=== PATIENT | female | born 1985 | race Caucasian/White ===

== ENCOUNTER 2019-08-11 08:30 | Inpatient (IN) | payer OTHER ==
[2019-08-11] MEDS ORDERED: ELECTROLYTE-148 SOLN 500 ML IV ONE (09:29)
[2019-08-11] MEDS ORDERED: PROMETHAZINE HCL 25 MG/1 ML VIAL IVPUSH ONE (09:29)
[2019-08-11] MEDS ORDERED: ELECTROLYTE-148 SOLN 1,000 ML IV SCH ×2 (09:30→19:45)
[2019-08-11] MEDS ORDERED: DINOPROSTONE 10 MG VAGINAL SUPPOSITORY VG ONE (09:34)
[2019-08-11 10:14] VITALS: BMI 33.6
[2019-08-11] MEDS: ELECTROLYTE-148 SOLN 1,000 ML IV SCH ×2 (12:30→17:00)
[2019-08-11 13:39] LABS: BASO % 0.7 % (0-2.0); EOS % 0.6 % (0-4.5); HEMATOCRIT 35.7 % (32.4-45.2); HEMOGLOBIN 11.3 GM/dL (10.7-15.3); LYMPH % 20.3 % (8-40); MCH 25.1 pg (25.7-33.7); MCHC 31.5 g/dl (32.0-36.0); MEAN CELL VOLUME 79.8 fl (80-96); MONO % 7.6 % (3.8-10.2); NEUT % 70.8 % (42.8-82.8); PLATELET COUNT 332 K/MM3 (134-434); RBC 4.47 M/mm3 (3.60-5.2); WHITE BLOOD COUNT 9.1 K/mm3 (4.0-10.0)
[2019-08-11 13:49] LABS: INR 0.85 (0.83-1.09)
[2019-08-11 13:52] LABS: ACTIVATED PTT 24.7 SECONDS (25.2-36.5)
[2019-08-11 14:03] LABS: BLOOD UREA NITROGEN 4.3 mg/dL (7-18); CALCIUM 8.9 mg/dL (8.5-10.1); CREATININE 0.5 mg/dL (0.55-1.3); POTASSIUM 4.2 mmol/L (3.5-5.1)
--- NOTE | 2019-08-11 14:46 | HP ---
Past Medical History - Primary Care Physician PCP:: Alexa Osborne - Admission Chief Complaint: Induction at 41 weeks History of Present Illness: 34 yo EDC EDC EGA 41 week admitted for induction of labor no rom no abd pain History Source: Patient Limitations to Obtaining History: No Limitations - Past Medical History ...: 1 ...Para: 0 ...Term: 0 ...: 0 ...Spon : 0 ...Induced : 0 ...Living Children: 0 ...Multiple Gestation: 0 ...LMP: 10/24/18 ... Weeks Gestation by Dates: 41.1 ...EDC by Dates: 08/03/19 - Past Surgical History Past Surgical History: Yes: None Hx Myomectomy: No Hx Transabdominal Cerclage: No - Smoking History Smoking history: Never smoked Have you smoked in the past 12 months: No - Alcohol/Substance Use Hx Alcohol Use: No History of Substance Use: reports: None - Social History Usual Living Arrangement: Yes: With Spouse History of Recent Travel: No Home Medications - Allergies Allergies/Adverse Reactions: Allergies Allergy/AdvReac Type Severity Reaction Status Date / Time Penicillins Allergy Severe Difficulty Verified 08/11/19 10:20 Breathing Sulfa (Sulfonamide Allergy Intermediate Hives Verified 08/11/19 10:20 Antibiotics) shellfish derived Allergy Mild Vomiting Verified 08/11/19 10:20 barium sulfate Allergy Hives Verified 10/02/12 20:00 - Home Medications Home Medications: Ambulatory Orders Ferrous Sulfate [Feosol] 325 mg PO DAILY 08/11/19 Lactulose [Kristalose] 10 gm PO DAILY 08/11/19 Review of Systems - Review of Systems Constitutional: reports: No Symptoms Eyes: reports: No Symptoms HENT: reports: No Symptoms Neck: reports: No Symptoms Cardiovascular: reports: No Symptoms Respiratory: reports: No Symptoms Gastrointestinal: reports: No Symptoms Genitourinary: reports: No Symptoms Breasts: reports: No Symptoms Reported Musculoskeletal: reports: No Symptoms Integumentary: reports: No Symptoms Neurological: reports: No Symptoms Endocrine: reports: No Symptoms Hematology/Lymphatic: reports: No Symptoms Psychiatric: reports: No Symptoms Physical Exam - Maternity Vital Signs: Vital Signs Temperature 98.2 F 08/11/19 14:00 Pulse Rate 120 H 08/11/19 14:00 Respiratory Rate 18 08/11/19 14:00 Blood Pressure 118/77 08/11/19 14:00 O2 Sat by Pulse Oximetry (%) Constitutional: Yes: Well Nourished, No Distress - Abdominal Exam/OB Number of Fetuses: Single Presentation: Vertex Heart Rate Location: [facility] Category: I - Vaginal Exam/OB Dilatation (cm): FT Amniotic Membrane Status: Intact Presentation: Vertex/Position Station: -2 - Physical Exam Musculoskeletal: Yes: WNL Extremities: Yes: WNL Edema: No - Labs Lab Results: CBC, BMP 08/11/19 12:57 08/11/19 12:57 Problem List - Problems (1) 41 weeks gestation of Code(s): Z3A.41 - 41 WEEKS GESTATION OF (2) Post-dates Code(s): O48.0 - POST-TERM Assessment/Plan iup at 41 weeks cervidil induction Postdates Cat 1 Plan cervidiil
[2019-08-11] MEDS ORDERED: ACETAMINOPHEN INJECTION 100 ML IVPB ONE (15:48)
[2019-08-11] MEDS ORDERED: ACETAMINOPHEN 1000 MG/100 ML VIAL (NON FORMULARY) IVPB PRN (16:47)
--- NOTE | 2019-08-11 17:04 | PN ---
Ante-Partal Exam - Subjective Subjective: Pt with elevated temp 100.6 Vital Signs: Vital Signs Temperature 99.0 F 08/11/19 16:00 Pulse Rate 115 H 08/11/19 16:00 Respiratory Rate 20 08/11/19 16:00 Blood Pressure 122/80 08/11/19 16:00 O2 Sat by Pulse Oximetry (%) Bleeding: No Headache: No Visual changes: No Right upper quadrant pain: No - Contractions Contractions: Tachysystole (Greater than 5 contractions in a 10 minute period) Regularity: Regular Intensity: Moderate Monitor Mode: External - Exam during Labor Heart Rate: 170 Variability: Minimal Category: II Monitor Decelerations: None Amniotic Membrane Status: Intact - Assessment/Plan Assessment/Plan: low grade temp Cat 2 Tentanic contraction Plan DC cervidil IVF IV Tylenol
[2019-08-11] MEDS ORDERED: CLINDAMYCIN 900 MG PREMIX IVPB 900 MG/50 ML BAG IVPB ONE (18:00)
--- NOTE | 2019-08-11 18:36 | PN ---
Ante-Partal Exam - Subjective Subjective: pt with tachycardia Vital Signs: Vital Signs Temperature 98.5 F 08/11/19 17:00 Pulse Rate 120 H 08/11/19 17:00 Respiratory Rate 18 08/11/19 17:00 Blood Pressure 138/79 08/11/19 17:00 O2 Sat by Pulse Oximetry (%) - Exam during Labor Heart Rate: 170 Variability: Moderate Category: II Monitor Decelerations: None Exam: Vaginal Amniotic Membrane Status: Intact Station: -1 - Intrapartum Hemorrhage Risk Risk Score: 0 Risk Level: Low Risk - Assessment/Plan Assessment/Plan: tachycardia Cat 2 Plan IV antibiotics IVF
--- NOTE | 2019-08-11 18:43 | PN ---
Ante-Partal Exam - Subjective Subjective: heart rate in 180s pt admits to possible leaking a few days ago no bleeding Vital Signs: Vital Signs Temperature 98.8 F 08/11/19 18:00 Pulse Rate 111 H 08/11/19 18:00 Respiratory Rate 18 08/11/19 18:00 Blood Pressure 136/83 08/11/19 18:00 O2 Sat by Pulse Oximetry (%) Bleeding: No Headache: No Visual changes: No Right upper quadrant pain: No - Contractions Contractions: Tachysystole (Greater than 5 contractions in a 10 minute period) Regularity: Regular Monitor Mode: External - Exam during Labor Heart Rate: 180 Heart Rate Location: [facility] Category: I Exam: Vaginal Dilatation (cm): 2 Effacement (%): 70 Amniotic Membrane Status: Leaking (? leaking) Presentation: Vertex Station: -2 - Intrapartum Hemorrhage Risk Risk Score: 0 Risk Level: Low Risk - Assessment/Plan Assessment/Plan: IUP at 41 week possible chorioamniotis FH180 pt offered CS - pt and refused right now Plan COntinue observation
[2019-08-11] MEDS ORDERED: ONDANSETRON 4 MG/2 ML VIAL IVPUSH PRN (19:24)
[2019-08-11] MEDS ORDERED: morphine SULFATE/PF 0.5 MG/ML (2cc Syringe - QUVA) ONE (19:30)
[2019-08-11] MEDS ORDERED: CITRIC ACID/SODIUM CITRATE 30 ML UNIT-DOSE CUP PO ONE (19:30)
[2019-08-11] MEDS ORDERED: METHYLERGONOVINE MALEATE 0.2 MG/1 ML AMP IM PRN (19:44)
[2019-08-11] MEDS ORDERED: BENZOCAINE 28 GM HEMORRHOIDAL OINTMENT RC PRN (19:44)
[2019-08-11] MEDS ORDERED: diphenhydrAMINE HCL 25 MG CAPSULE (FP) PO PRN (19:44)
[2019-08-11] MEDS ORDERED: WITCH HAZEL 50% (TUCKS) 40 PAD/JAR PAD TP PRN (19:44)
[2019-08-11] MEDS ORDERED: BENZOCAINE 20% 57 GM BOTTLE TP PRN (19:44)
--- NOTE | 2019-08-11 19:44 | PN ---
Ante-Partal Exam - Subjective Subjective: pt still with tachycardia with occ spont decels case disucced with and pt advised CS pt agrees Vital Signs: Vital Signs Temperature 98.8 F 08/11/19 18:00 Pulse Rate 111 H 08/11/19 18:00 Respiratory Rate 18 08/11/19 18:00 Blood Pressure 136/83 08/11/19 18:00 O2 Sat by Pulse Oximetry (%) Bleeding: No Headache: No Visual changes: No Right upper quadrant pain: No - Contractions Contractions: Yes Regularity: Irregular Monitor Mode: External - Exam during Labor Variability: Minimal, Moderate Category: II Monitor Accelerations: Absent Monitor Decelerations: Variable Exam: Vaginal Dilatation (cm): 2 Amniotic Membrane Status: Leaking Presentation: Vertex Station: -2 - Intrapartum Hemorrhage Risk Medium Risk Factors: Chorioamniomitis Risk Score: 1 Risk Level: Medium Risk - Assessment/Plan Assessment/Plan: Nonreassuring Cat 2 tachycardia 41 week Plan CS notify peds and anesthesia
[2019-08-11] MEDS ORDERED: OXYTOCIN 20 UNITS in 0.9% NS 20 UNIT/1,000 ML INFUS.BAG IV SCH (20:00)
[2019-08-11] MEDS ORDERED: KETOROLAC TROMETHAMINE 30 MG/1 ML VIAL ONE (20:04)
[2019-08-11] MEDS ORDERED: DEXAMETHASONE SOD PHOSPHATE 4 MG/1 ML VIAL ONE (20:04)
[2019-08-11] MEDS ORDERED: OXYTOCIN 10 UNITS/ML VIAL ONE (20:04)
[2019-08-11] MEDS ORDERED: PHENYLEPHRINE HCL 10 MG/1 ML SINGLE DOSE VIAL ONE (20:08)
[2019-08-11] MEDS ORDERED: GENTAMICIN SO4 80 MG/2 ML VIAL ONE (20:17)
--- NOTE | 2019-08-11 20:33 | PN ---
Progress Note (short form) - Note Progress Note: Attended C/S for this 34yrs old mother with PNL- Nl, GBS- neg C/S for NRFHT Mom had 1 spike of low grade Temp of 100.4 none after than Had received 1 dose of Tylenol, Got 1 dose of Clinda @ around 6Pm delivered, clear fluid, cried soon after suctioned/dried cord 3V 9/9 clibnically stable - pink well perfused HEENT- normocephalic, Good air entry No heart murmur, No organo Good tone and activity. No organomegaly FROM., Nl Hip exam RNBC Watch for resp distrtess CBC @ 6hrs Blood culture now.
--- NOTE | 2019-08-11 21:10 | OP ---
Operative Note - Note: Operative Date: 08/11/19 Pre-Operative Diagnosis: nonreassuring tracing. iup at 41 weeks. tacycardia Operation: Primary Low transverse Section Findings: live male nuchal cord x 1 Post-Operative Diagnosis: Same as Pre-op Surgeon: Alexa Osborne Saddle And Side Wire Stitcher: Ulisses Palacios Anesthesia: Spinal Estimated Blood Loss (mls): 500 Operative Report Dictated: Yes
--- NOTE | 2019-08-11 22:02 | OP ---
DATE OF OPERATION: 08/11/2019 PREOPERATIVE DIAGNOSIS: Nonreassuring tracing, tachycardia, and intrauterine at 41 weeks. OPERATION: Primary low transverse section. POSTOPERATIVE DIAGNOSES: 1. Nonreassuring tracing, tachycardia, and intrauterine at 41 weeks. 2. Live male infant, nuchal cord x1, delivered in left occiput transverse position. SURGEON: Alexa Osborne MD DRUG SAFETY ASSISTANT: SON Champagne ANESTHESIA: Spinal. ANESTHESIOLOGIST: Brian Tsai MD DESCRIPTION OF PROCEDURE: Patient was taken to the operating room, placed in supine position, prepped and draped in usual sterile fashion after spinal anesthesia had been given. A timeout was performed in accordance with hospital regulation. Pfannenstiel skin incision was made with a scalpel. Cautery was then used to go through the layers of the abdominal wall to the level of the fascia. Fascia was cut in the midline, and cautery was then used to open the fascia in smiling fashion. Andie was then used to bluntly and sharply dissect the rectus muscle off the fascia. Muscle was split in the midline. Peritoneal cavity was then entered. Bladder retractor was then placed. Scalpel was then used to make a low transverse uterine incision. Incision was carried up using the bandage scissors. A live male infant was delivered in OT position, nose and mouth suction performed. Shoulders were delivered without difficulty. Cord was clamped and cut, cord blood obtained, cord pH obtained. Placenta was manually extracted from the patient. Infant was handed to entry driver operator. Uterus was exteriorized and cleaned with clean lap pads and closed using 0 Biosyn suture, first layer continuous interlocking, second layer imbricating the first layer. Hemostasis was achieved, uterus interiorized. Abdominal cavity cleaned with clean lap pads. Peritoneum closed using 0 Biosyn suture. Fascia was then closed using 0 Vicryl suture in 2 parts. Subcutaneous was closed using 0 Biosyn suture in interrupted sutures, and skin was then closed using 3-0 Vicryl subcuticular fashion. Wound was washed and dressed. Patient tolerated the procedure well, was taken to recovery room in stable condition. EBL 500 cc Shahla HILL/[id number] [facility]
[2019-08-11 22:25] LABS: CORD HCO3 21.9 mmHg (20-29); CORD PCO2 52.9 mmHg (30-78); CORD pH 7.235 (7.14-7.44)
[2019-08-11 22:31] LABS: CORD BASE EXCESS -4.2 mmol/L (0-2); CORD HCO3 22.2 mmHg (20-29); CORD PCO2 46.1 mmHg (30-78); CORD pH 7.301 (7.14-7.44)
[2019-08-11] MEDS: IBUPROFEN 800 MG/8 ML IJ IVPB PRN (23:03)
[2019-08-11] MEDS: BUTORPHANOL TARTRATE 1 MG/ML VIAL IVPB SCH (23:38)
[2019-08-12] MEDS: CLINDAMYCIN 600MG PREMIX IVPB 600 MG/50 ML BAG IVPB SCH ×5 (00:48→23:29)
--- NOTE | 2019-08-12 07:02 | PN ---
Progress Note (SOAP) - Subjective Chief Complaint: Pt doing well - Current Medications Current Medications: Active Medications Acetaminophen (Ofirmev Injection -) 1,000 mg IVPB Q6H PRN PRN Reason: FEVER Stop: 08/12/19 16:50 Last Admin: 08/11/19 16:00 Dose: 1,000 mg Documented by: Acetaminophen (Tylenol -) 650 mg PO Q4H PRN PRN Reason: FEVER Benzocaine (Americaine 20% [place] -) 1 spray TP PRN PRN PRN Reason: Pain - Topical Benzocaine (Americaine Ointment -) 1 applic RC PRN PRN PRN Reason: Pain - Topical Bisacodyl (Dulcolax Suppository -) 10 mg WV PRN PRN PRN Reason: CONSTIPATION Diphenhydramine HCl (Benadryl -) 25 mg PO Q6H PRN PRN Reason: FOR ITCHING Hydromorphone HCl (Dilaudid -) 4 mg PO Q4H PRN PRN Reason: PAIN LEVEL 7 - 10 Stop: 08/13/19 19:43 Parenteral Electrolytes (Plasma-Lyte 148 -) 1,000 mls @ 125 mls/hr IV ASDIR VERONICA Last Admin: 08/11/19 17:00 Dose: 125 mls/hr Documented by: Clindamycin Phosphate (Cleocin 600 Mg Premix Ivpb -) 600 mg in 50 mls @ 100 mls/hr IVPB Q6H VERONICA Stop: 08/13/19 00:00 Last Admin: 08/12/19 05:37 Dose: 100 mls/hr Documented by: Oxytocin/Sodium Chloride (Normal Saline+20 Units Oxytocin -) 20 unit in 1,000 mls @ 125 mls/hr IV ASDIR VERONICA Ibuprofen (Motrin -) 600 mg PO Q4H PRN PRN Reason: PAIN LEVEL 1 - 3 Ibuprofen (Caldolor Injection -) 800 mg IVPB Q6H PRN PRN Reason: Fever - If PO not effective. Last Admin: 08/11/19 23:03 Dose: 800 mg Documented by: Methylergonovine Maleate (Methergine Injection -) 0.2 mg IM Q4H PRN PRN Reason: EXCESSIVE BLEEDING Ondansetron HCl (Zofran Injection) 4 mg IVPUSH Q4H PRN PRN Reason: NAUSEA Oxycodone HCl (Roxicodone -) 5 mg PO Q4H PRN PRN Reason: PAIN LEVEL 1 - 3 Oxycodone HCl (Roxicodone -) 10 mg PO Q4H PRN PRN Reason: PAIN LEVEL 4 - 6 Senna/Docusate Sodium (Pericolace -) 2 tablet PO HS PRN PRN Reason: CONSTIPATION Simethicone (Mylicon -) 80 mg PO Q4H PRN PRN Reason: GAS Witch Maria R/Glycerin (Tucks Pads -) 1 pad TP PRN PRN PRN Reason: Pain - Topical - Objective Vital Signs: Vital Signs Temperature 98.0 F 08/12/19 05:56 Pulse Rate 96 H 08/12/19 05:56 Respiratory Rate 08/12/19 06:00 Blood Pressure 97/60 08/12/19 05:56 O2 Sat by Pulse Oximetry (%) 100 08/11/19 21:55 Constitutional: Yes: Well Nourished HENT: Yes: WNL Gastrointestinal: Yes: Soft, Abdomen, Obese ....Post : Yes: Uterus firm, Uterus non-tender Breast(s): Yes: WNL Musculoskeletal: Yes: WNL Extremities: Yes: WNL Wound/Incision: Yes: Clean/Dry, Well Approximated, Steri Strips, Open to air, Dressing Removed Neurological: Yes: WNL, Alert, Oriented Psychiatric: Yes: WNL, Alert, Oriented Labs Lab Results: CBCD WBC 9.1 K/mm3 (4.0-10.0) 08/11/19 12:57 RBC 4.47 M/mm3 (3.60-5.2) 08/11/19 12:57 Hgb 11.3 GM/dL (10.7-15.3) 08/11/19 12:57 Hct 35.7 % (32.4-45.2) 08/11/19 12:57 MCV 79.8 fl (80-96) L 08/11/19 12:57 MCHC 31.5 g/dl (32.0-36.0) L 08/11/19 12:57 RDW 18.0 % (11.6-15.6) H 08/11/19 12:57 Plt Count 332 K/MM3 (134-434) D 08/11/19 12:57 MPV 9.0 fl (7.5-11.1) D 08/11/19 12:57 CMP Sodium 139 mmol/L (136-145) 08/11/19 12:57 Potassium 4.2 mmol/L (3.5-5.1) 08/11/19 12:57 Chloride 108 mmol/L (98-107) H 08/11/19 12:57 Carbon Dioxide 22 mmol/L (21-32) 08/11/19 12:57 Anion Gap 9 MMOL/L (8-16) 08/11/19 12:57 BUN 4.3 mg/dL (7-18) L 08/11/19 12:57 Creatinine 0.5 mg/dL (0.55-1.3) L 08/11/19 12:57 Random Glucose 75 mg/dL (74-106) 08/11/19 12:57 Calcium 8.9 mg/dL (8.5-10.1) 08/11/19 12:57 Problem List - Problems (1) 41 weeks gestation of Problems reviewed: Yes Code(s): Z3A.41 - 41 WEEKS GESTATION OF (2) Post-dates Problems reviewed: Yes Code(s): O48.0 - POST-TERM Qualifiers: Post-term type: 40-42 weeks gestation Qualified Code(s): O48.0 - Post-term (3) delivery delivered Code(s): O82 - ENCOUNTER FOR DELIVERY WITHOUT INDICATION (4) Status post primary low transverse section Problems reviewed: Yes Code(s): Z98.891 - HISTORY OF UTERINE SCAR FROM PREVIOUS SURGERY Assessment/Plan SP CS POD1 stable Plan OOB continue present management
[2019-08-12 07:28] LABS: HEMATOCRIT 27.6 % (32.4-45.2); HEMOGLOBIN 8.7 GM/dL (10.7-15.3); MCH 25.1 pg (25.7-33.7); MCHC 31.5 g/dl (32.0-36.0); MEAN CELL VOLUME 79.8 fl (80-96); MEAN PLT VOLUME 8.9 fl (7.5-11.1); PLATELET COUNT 269 K/MM3 (134-434); RBC 3.46 M/mm3 (3.60-5.2); RDW 17.6 % (11.6-15.6); WHITE BLOOD COUNT 14.4 K/mm3 (4.0-10.0)
[2019-08-12] MEDS: IBUPROFEN 800 MG/8 ML IJ IVPB PRN (08:39)
[2019-08-12] MEDS: SIMETHICONE 80 MG TAB.CHEW (FP) PO PRN ×3 (08:40→21:26)
--- NOTE | 2019-08-12 14:11 | PN ---
Progress Note (short form) - Note Progress Note: Pt seen. Feeling well. VSS. No N/V. c/o itching. VALENZUELA well. Recommend benadryl for itching. Continue current care.
[2019-08-12] MEDS: IBUPROFEN 600 MG TABLET (FP) PO PRN ×2 (18:32→21:27)
[2019-08-12] MEDS: ACETAMINOPHEN 325 MG TABLET (FP) PO PRN ×2 (18:33→21:27)
[2019-08-12] MEDS ORDERED: BISACODYL 10 MG SUPP.RECT PR PRN (19:44)
[2019-08-12] MEDS ORDERED: HYDROmorphone HCL 2 MG TABLET PO PRN (19:44)
[2019-08-12] MEDS ORDERED: oxyCODONE HCL 5 MG TABLET PO PRN ×2 (19:44)
[2019-08-12] MEDS: ELECTROLYTE-148 SOLN 1,000 ML IV SCH (19:57)
[2019-08-12] MEDS: BUTORPHANOL TARTRATE 1 MG/ML VIAL IVPB SCH (19:58)
--- NOTE | 2019-08-13 07:00 | PN ---
Post Progress Note - Subjective Subjective: 34 yo Para 1 status post primary , seen and evaluated. Doing well. Post Day: 2 Type of Delivery: Primary C/S Vital Signs: Vital Signs Temperature 97.8 F 08/12/19 22:00 Pulse Rate 98 H 08/12/19 22:00 Respiratory Rate 18 08/12/19 22:00 Blood Pressure 121/74 08/12/19 22:00 O2 Sat by Pulse Oximetry (%) 100 08/11/19 21:55 Breast Exam: Yes: Soft Uterus: Yes: Fundus Firm Incision: Yes: Dressing dry and intact Abdomen/GI: Yes: Abdomen soft, Tolerating PO Lochia: Yes: Rubra Lochia, amount: Small Extremities: Yes: Calves non-tender Activity: Ambulating - Labs Labs: CBC WBC 14.4 K/mm3 (4.0-10.0) H 08/12/19 06:39 RBC 3.46 M/mm3 (3.60-5.2) L 08/12/19 06:39 Hgb 8.7 GM/dL (10.7-15.3) L 08/12/19 06:39 Hct 27.6 % (32.4-45.2) L D 08/12/19 06:39 MCV 79.8 fl (80-96) L 08/12/19 06:39 MCH 25.1 pg (25.7-33.7) L 08/12/19 06:39 MCHC 31.5 g/dl (32.0-36.0) L 08/12/19 06:39 RDW 17.6 % (11.6-15.6) H 08/12/19 06:39 Plt Count 269 K/MM3 (134-434) 08/12/19 06:39 MPV 8.9 fl (7.5-11.1) 08/12/19 06:39 Absolute Neuts (auto) 6.5 K/mm3 (1.5-8.0) 08/11/19 12:57 Neutrophils % 70.8 % (42.8-82.8) 08/11/19 12:57 Lymphocytes % 20.3 % (8-40) D 08/11/19 12:57 Monocytes % 7.6 % (3.8-10.2) 08/11/19 12:57 Eosinophils % 0.6 % (0-4.5) 08/11/19 12:57 Basophils % 0.7 % (0-2.0) 08/11/19 12:57 Nucleated RBC % 0 % (0-0) 08/11/19 12:57 Assessment/Plan Status post primary Ambulation Analgesia as needed Continue routine post op care
--- NOTE | 2019-08-13 14:36 | DS ---
Physical Exam-TICKET ATTENDANT Vital Signs: Vital Signs Temperature 98.3 F 08/13/19 10:00 Pulse Rate 96 H 08/13/19 10:00 Respiratory Rate 18 08/13/19 10:00 Blood Pressure 120/82 08/13/19 10:00 O2 Sat by Pulse Oximetry (%) 100 08/11/19 21:55 Constitutional: Yes: Well Nourished, No Distress ....Post : Yes: Uterus firm, Uterus non-tender Breast(s): Yes: WNL Musculoskeletal: Yes: WNL Extremities: Yes: WNL Edema: Yes Wound/Incision: Yes: Steri Strips, Open to air Psychiatric: Yes: WNL, Alert, Oriented Labs: CBC, BMP 08/12/19 06:39 08/11/19 12:57 Delivery - Delivery Section: Primary, Low Flap Transverse Type of Anesthesia: Spinal Episiotomy/Laceration: None EBL (cc): 500 Delivery, Single - Stages of Labor Date 1st Stage Initiatied: 08/11/19 Time 1st Stage Initiated: 13:00 Date of Delivery: 08/11/19 Time of Delivery: 20:16 Time Placenta Delivered: 20:17 - Condition of Infant Package Wrapper/Hide Handler Present: Yes Name: Jim Isaac Infant Gender: Male Weight: 9 lb 1 oz Total Hours ROM (Hrs/Mins): 4 mins. - 1 Minute Total Score: 9 5 Minutes Total Score: 9 - [place] Feeding Plan Initial Plan: Exclusive throughout hospitalization Discharge Summary Problems reviewed: Yes Reason For Visit: ADMIT FOR INDUCTION Current Active Problems 41 weeks gestation of (Acute) delivery delivered (Acute) Post-dates (Acute) Status post primary low transverse section (Acute) Procedures: Principal: Low transverse section Hospital Course: Unremarkable Condition: Good - Instructions Diet, Activity, Other Instructions: Physical activity Resume your normal everyday activity as tolerated no heavy lifting or exercise until seen by your surgeon. You may walk unlimited elia of and climb stairs. You may resume driving the car when you feel safe and comfortable behind the wheel. No sexual activity as instructed. Wound care If you have a bandage, leave it on, and keep dry for 48-72 hours. After that time discard the outer bandage. If they are tapes on the skin under the out of bandage leave them in place. They will peel off in the next 7 to 10 days. Do Not Peel them off. You may shower the day after surgery. If there are tapes present on the skin, you may shower over them. Diet There are no dietary restrictions. Eat healthy, high-fiber foods. Drink 6 to 8 glasses of liquid each day. This will assist in keeping your bowels are regular. Pain management You may take Tylenol or acetaminophen or Ibuprofen (for example, Motrin, Advil etc.) from my pain prescription medication is ordered should be taken as prescribed for moderate to severe pain. Call MD for any of the following: Severe pain not relieved by medication Fever of 101 or higher Excessive bleeding or drainage on dressing Inability to urinate Referrals: Alexa Osborne MD [Staff Physician] - Disposition: HOME - Home Medications Comprehensive Discharge Medication List: Ambulatory Orders Ferrous Sulfate [Feosol] 325 mg PO DAILY 08/11/19 Lactulose [Kristalose] 10 gm PO DAILY 08/11/19 Oxycodone HCl/Acetaminophen [Percocet 5-325 mg Tablet] 2 tab PO Q4H #20 tablet MDD 6 08/13/19
[2019-08-13] MEDS: ACETAMINOPHEN 325 MG TABLET (FP) PO PRN (14:56)
[2019-08-13] MEDS: SIMETHICONE 80 MG TAB.CHEW (FP) PO PRN (14:57)
[2019-08-13] MEDS: IBUPROFEN 600 MG TABLET (FP) PO PRN (14:57)
--- NOTE | 2019-08-13 15:27 | PN ---
Progress Note (short form) - Note Progress Note: Discussed pt symptoms over the phone - Pt with c/o of headache after epidural does not desire to go home will have anesthesia do consult Problem List - Problems (1) 41 weeks gestation of Code(s): Z3A.41 - 41 WEEKS GESTATION OF (2) Post-dates Code(s): O48.0 - POST-TERM Qualifiers: Post-term type: 40-42 weeks gestation Qualified Code(s): O48.0 - Post-term (3) Epidural anesthesia-induced headache during puerperium Problems reviewed: Yes Code(s): O89.4 - SPINAL AND EPIDUR ANESTHESIA-INDUCED HDACHE DURING THE PUERP
[2019-08-13] MEDS ORDERED: ACETAMINOPHEN/CAFFEINE/BUTALBITAL 1 TAB PO PRN (15:53)
--- NOTE | 2019-08-13 16:02 | PN ---
Progress Note (short form) - Note Progress Note: Saw patient at the request of Dr Osborne for c/o headache post c sec tion.Patient has c section on 08/11/19 and started having frontal headache from last night with pain score of 5-6/10.she is lying in the bed comfortably.Her headache gets better with medication and may be gets worst while standind.IThis not a typical post dural headache so adised her to take medical treatment today and if her headache gets worst we will evaluate tomorrow for possible epidural blood patch.
[2019-08-13] MEDS ORDERED: SENNOSIDES/DOCUSATE COMBO (SENNA PLUS) TABLET (UD) PO PRN (22:00)
--- NOTE | 2019-08-14 08:08 | PN ---
Progress Note (short form) - Note Progress Note: POST/OP anesthesia note for PDPH VSS,headache is relieved. No occipital headache,no relationship with the position, no effect on the eyes, no nuchal rigidity. Neck movements are easy without any pain. Sitting up or standing does not aggravate pain. Pain score is low. Marline Hunt MD.
[2019-08-14 08:50] LABS: HEMATOCRIT 29.1 % (32.4-45.2); MCH 24.6 pg (25.7-33.7); MCHC 30.9 g/dl (32.0-36.0); MEAN CELL VOLUME 79.6 fl (80-96); MEAN PLT VOLUME 8.3 fl (7.5-11.1); PLATELET COUNT 347 K/MM3 (134-434); RBC 3.66 M/mm3 (3.60-5.2); RDW 18.3 % (11.6-15.6); WHITE BLOOD COUNT 11.2 K/mm3 (4.0-10.0)
[2019-08-14] MEDS: SIMETHICONE 80 MG TAB.CHEW (FP) PO PRN (09:05)
[2019-08-14] MEDS: ACETAMINOPHEN 325 MG TABLET (FP) PO PRN (09:05)
--- NOTE | 2019-08-14 10:00 | PN ---
Progress Note (SOAP) - Subjective Chief Complaint: Pt cant empty bladder - Current Medications Current Medications: Active Medications Acetaminophen (Tylenol -) 650 mg PO Q4H PRN PRN Reason: FEVER Last Admin: 08/14/19 09:05 Dose: 650 mg Documented by: Acetaminophen/Butalbital/Caffeine (Fioricet -) 1 tablet PO Q6H PRN PRN Reason: HEADACHE Benzocaine (Americaine 20% [place] -) 1 spray TP PRN PRN PRN Reason: Pain - Topical Benzocaine (Americaine Ointment -) 1 applic RC PRN PRN PRN Reason: Pain - Topical Bisacodyl (Dulcolax Suppository -) 10 mg MD PRN PRN PRN Reason: CONSTIPATION Diphenhydramine HCl (Benadryl -) 25 mg PO Q6H PRN PRN Reason: FOR ITCHING Oxytocin/Sodium Chloride (Normal Saline+20 Units Oxytocin -) 20 unit in 1,000 mls @ 125 mls/hr IV ASDIR VERONCIA Last Admin: 08/12/19 21:10 Dose: Not Given Documented by: Ibuprofen (Motrin -) 600 mg PO Q4H PRN PRN Reason: PAIN LEVEL 1 - 3 Last Admin: 08/13/19 14:57 Dose: 600 mg Documented by: Ibuprofen (Caldolor Injection -) 800 mg IVPB Q6H PRN PRN Reason: Fever - If PO not effective. Last Admin: 08/12/19 08:39 Dose: 800 mg Documented by: Methylergonovine Maleate (Methergine Injection -) 0.2 mg IM Q4H PRN PRN Reason: EXCESSIVE BLEEDING Last Admin: 08/12/19 12:57 Dose: 0.2 mg Documented by: Ondansetron HCl (Zofran Injection) 4 mg IVPUSH Q4H PRN PRN Reason: NAUSEA Oxycodone HCl (Roxicodone -) 5 mg PO Q4H PRN PRN Reason: PAIN LEVEL 1 - 3 Oxycodone HCl (Roxicodone -) 10 mg PO Q4H PRN PRN Reason: PAIN LEVEL 4 - 6 Senna/Docusate Sodium (Pericolace -) 2 tablet PO HS PRN PRN Reason: CONSTIPATION Simethicone (Mylicon -) 80 mg PO Q4H PRN PRN Reason: GAS Last Admin: 08/14/19 09:05 Dose: 80 mg Documented by: Adalberto Heck/Glycerin (Tucks Pads -) 1 pad TP PRN PRN PRN Reason: Pain - Topical - Objective Vital Signs: Vital Signs Temperature 99.0 F 08/13/19 22:00 Pulse Rate 137 H 08/13/19 22:00 Respiratory Rate 18 08/13/19 22:00 Blood Pressure 115/83 08/13/19 22:00 O2 Sat by Pulse Oximetry (%) 100 08/11/19 21:55 Constitutional: Yes: Well Nourished, No Distress Gastrointestinal: Yes: WNL, Soft, Abdomen, Obese Labs Lab Results: CBCD WBC 11.2 K/mm3 (4.0-10.0) H 08/14/19 07:28 RBC 3.66 M/mm3 (3.60-5.2) 08/14/19 07:28 Hgb 9.0 GM/dL (10.7-15.3) L 08/14/19 07:28 Hct 29.1 % (32.4-45.2) L 08/14/19 07:28 MCV 79.6 fl (80-96) L 08/14/19 07:28 MCHC 30.9 g/dl (32.0-36.0) L 08/14/19 07:28 RDW 18.3 % (11.6-15.6) H 08/14/19 07:28 Plt Count 347 K/MM3 (134-434) D 08/14/19 07:28 MPV 8.3 fl (7.5-11.1) 08/14/19 07:28 CMP Sodium 139 mmol/L (136-145) 08/11/19 12:57 Potassium 4.2 mmol/L (3.5-5.1) 08/11/19 12:57 Chloride 108 mmol/L (98-107) H 08/11/19 12:57 Carbon Dioxide 22 mmol/L (21-32) 08/11/19 12:57 Anion Gap 9 MMOL/L (8-16) 08/11/19 12:57 BUN 4.3 mg/dL (7-18) L 08/11/19 12:57 Creatinine 0.5 mg/dL (0.55-1.3) L 08/11/19 12:57 Random Glucose 75 mg/dL (74-106) 08/11/19 12:57 Calcium 8.9 mg/dL (8.5-10.1) 08/11/19 12:57 Problem List - Problems (1) 41 weeks gestation of Code(s): Z3A.41 - 41 WEEKS GESTATION OF (2) Post-dates Code(s): O48.0 - POST-TERM Qualifiers: Post-term type: 40-42 weeks gestation Qualified Code(s): O48.0 - Post-term (3) Epidural anesthesia-induced headache during puerperium Code(s): O89.4 - SPINAL AND EPIDUR ANESTHESIA-INDUCED HDACHE DURING THE PUERP Assessment/Plan SP Section unable to empty bladder POD3 RO UTI Plan UA Urine Culture
[2019-08-14 10:38] VITALS: BP 128/94; PULSE 121; TEMP 98.3
[2019-08-14 13:50] LABS: EPI CELLS 6 /uL (0-25.1); HYALINE CASTS 0 /uL (0-3.1); URINE APPEARANCE CLEAR; URINE BACTERIA 8 /uL (0-1359); URINE BILIRUBIN NEGATIVE (NEGATIVE); URINE COLOR YELLOW; URINE GLUCOSE (UA) NEGATIVE (NEGATIVE); URINE KETONE NEGATIVE (NEGATIVE); URINE LEUK ESTERASE NEGATIVE (NEGATIVE); URINE NITRITE NEGATIVE (NEGATIVE); URINE PROTEIN NEGATIVE (NEGATIVE); URINE RBC 95 /uL (0-23.9); URINE UROBILINOGEN 0.2 mg/dL (0.2-1.0); URINE WBC 4 /uL (0-25.8)
--- NOTE | 2019-08-18 17:10 | PATH ---
Surgical Pathology Report Patient Name: MATHWE CERDA [facility]. Rec. 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 Specimen(s) Received PLACENTA Clinical History at 41.1 week primary Final Diagnosis PLACENTA: THIRD TRIMESTER PLACENTA. TRIVASCULAR CORD. MEMBRANES WITH NO DIAGNOSTIC ABNORMALITIES. Electronically Signed Jorge L Cisneros M.D. Gross Description The specimen is received fresh labeled placenta and is a 582 gram, 21.0 x 19.0 x 2.0 cm. placenta with attached membranes and umbilical cord. The attached membranes are reed, translucent with focal opacities and insert marginally. The umbilical cord measures 11 cm. in length and averages 1 cm. in diameter. The cord inserts centrally. No true knots or strictures are identified. Cut surface of the umbilical cord reveals 3 vessels. The surface is calvo-blue with minimal fibrin deposition and appropriate caliber vessels. The maternal surface is red-brown with focal defects. Sectioning reveals red-brown, spongy parenchyma. No lesions are identified. Commercial [employer]or sections are submitted in three cassettes as follows: 1- membrane rolls and umbilical cord; 2-3- full thickness sections of placenta. /08/14/2019 saudi08/14/2019
== END 2019-08-14 15:40 | disposition home or self-care (01) | DRG 786 ==
LOC: JLDR 08:30 → J3W 23:21
PROVIDERS: ADMIT Obstetrics & Gynecology; ATTEND Obstetrics & Gynecology
PROC: 10D00Z1 Extraction of Products of Conception, Low, Open Approach (ICD-10-PCS; principal; 2019-08-11)
PROC: 3E0P7VZ Introduction of Hormone into Female Reproductive, Via Natural or Artificial Opening (ICD-10-PCS; 2019-08-11)
DX: O48.0 Post-term pregnancy (principal); O41.1230 Chorioamnionitis, third trimester, not applicable or unspecified; O75.2 Pyrexia during labor, not elsewhere classified; O76 Abnormality in fetal heart rate and rhythm complicating labor and delivery; O69.81X0 Labor and delivery complicated by cord around neck, without compression, not applicable or unspecified; O89.4 Spinal and epidural anesthesia-induced headache during the puerperium; Z3A.41 41 weeks gestation of pregnancy; Z37.0 Single live birth; Z88.0 Allergy status to penicillin; Z88.2 Allergy status to sulfonamides; Z88.8 Allergy status to other drugs, medicaments and biological substances; Z91.018 Allergy to other foods
CPT/HCPCS: 36415; 36600; 80048; 81003; 82803; 85025; 85027; 85610; 85730; 86780; 86850; 86900; 86901; 87086; 87340; 88307-TC; J0131; U0003